=== PATIENT | male | born 1970 | race Caucasian/White ===

== ENCOUNTER → 2019-02-21 | Outpatient (CLI) | payer OTHER ==
[~2019-02-21] MED LIST: ASPI325 PO; ELIQUIS5 MG PO; FIORINAL-COD 31 EACH PO; FLUT1DIS2 INH; FLUTICASONE P15.8 ML NS; IBUP800 PO; NAPR500 PO; Striant30 MG
== END | disposition home or self-care (01) ==
LOC: LAB 07:33 → LAB SHORT 07:33
DX: L82.1 Other seborrheic keratosis (principal); L72.9 Follicular cyst of the skin and subcutaneous tissue, unspecified
CPT/HCPCS: 88305

== ENCOUNTER 2019-10-17 09:47 | Day surgery (SDC) | payer OTHER ==
[~2019-10-17] VITALS: Ht 185.4 cm; Wt 147.4 kg
[2019-10-17] MEDS ORDERED: ELIQUIS5 MG (10:16)
== END 2019-10-17 11:35 | disposition home or self-care (01) ==
LOC: ORSCSDS 09:47
PROVIDERS: Internal Medicine Gastroenterology
PROC: 0DJD8ZZ Inspection of Lower Intestinal Tract, Via Natural or Artificial Opening Endoscopic (ICD-10-PCS; principal; 2019-10-17 11:00)
DX: Z12.11 Encounter for screening for malignant neoplasm of colon (principal); K64.8 Other hemorrhoids; Z86.73 Personal history of transient ischemic attack (TIA), and cerebral infarction without residual deficits; J45.909 Unspecified asthma, uncomplicated; G47.33 Obstructive sleep apnea (adult) (pediatric); Z86.718 Personal history of other venous thrombosis and embolism; E66.01 Morbid (severe) obesity due to excess calories; Z68.42 Body mass index [BMI] 45.0-49.9, adult; Z79.01 Long term (current) use of anticoagulants; Z79.899 Other long term (current) drug therapy
CPT/HCPCS: J2250; J2704; J7120

== ENCOUNTER 2021-08-24 06:33 | Day surgery (SDC) | payer OTHER ==
[~2021-08-24] VITALS: Ht 185.4 cm; Wt 113.0 kg
[~2021-08-24 06:33] MED LIST changes: +ELIQUIS5 MG
[2021-08-24] MEDS ORDERED: ZOLP12.5 PO (07:03)
[2021-08-24] MEDS ORDERED: MODA200 PO (07:04)
[2021-08-24] MEDS ORDERED: NAPR500 PO (07:05)
[2021-08-24] MEDS ORDERED: CENTRUM SILVER1 EAC2 PO (07:06)
[2021-08-24] MEDS ORDERED: Vitamin C100 M1 PO (07:06)
--- NOTE | 2021-08-24 10:10 | NUR ---
AIR REMOVED FROM R WRIST TR BAND. -BLEEDING OR SWELLING. PT AMB TO BATHROOM /S ASSIST. TOLERATED WELL.
--- NOTE | 2021-08-24 10:14 | NUR ---
L HAND IV REMOVED.
--- NOTE | 2021-08-24 10:22 | NUR ---
DISCHARGE GONE OVER WITH PT, VERBALIZES UNDERSTANDING OF INSTRUCTIONS. TR BAND REMOVED, AREA CLEANSED AND CLOTH DOT DRESSING PLACED. PT TO PRIVATE VEHICLE PER W/C.
== END 2021-08-24 10:20 | disposition home or self-care (01) ==
LOC: MHTC 06:33
DX: R07.89 Other chest pain (principal); I10 Essential (primary) hypertension; E66.9 Obesity, unspecified; Z86.73 Personal history of transient ischemic attack (TIA), and cerebral infarction without residual deficits; Z68.34 Body mass index [BMI] 34.0-34.9, adult
CPT/HCPCS: 76937; 93005; 93010; 93454; 99152; 99153; C1769; C1894; J1644; J2250; J3010; J7030; J7050; Q9967

== ENCOUNTER → 2024-09-30 | Outpatient (CLI) | payer OTHER ==
[~2024-09-30] MED LIST changes: +CENTRUM SILVER1 EAC2 PO; +MIRALAX17 GM PO; +MODA200 PO; +Vitamin C100 M1 PO; +ZOLP12.5 PO
[2024-09-30 17:47] LABS: BASOPHILS ABSOLUTE AUTO 0.03 K/mm3 (0.00-0.23); BASOPHILS PERCENT AUTO 0 % (0-2); EOSINOPHILS ABSOLUTE AUTO 0.08 K/mm3 (0.00-0.68); EOSINOPHILS PERCENT AUTO 1 % (0-6); Hematocrit 43.8 % (37.0-53.0); Hemoglobin 14.8 g/dL (13.5-17.5); IMMATURE GRAN ABSOLUTE AUTO 0.01 K/mm3 (0.00-0.10); IMMATURE GRAN PERCENT AUTO 0 % (0-1); LYMPHOCYTES ABSOLUTE AUTO 0.98 K/mm3 (0.84-5.20); LYMPHOCYTES PERCENT AUTO 15 % (21-46); MONOCYTES ABSOLUTE AUTO 0.87 K/mm3 (0.16-1.47); MONOCYTES PERCENT AUTO 13 % (4-13); Mean Corpuscular HGB 30.6 pg (26.0-34.0); Mean Corpuscular HGB Conc 33.8 g/dL (31.5-36.5); Mean Corpuscular Volume 91 fL (80-100); Mean Platelet Volume 10.1 fL (9.1-12.4); NEUTROPHILS ABSOLUTE AUTO 4.72 K/mm3 (1.96-9.15); NEUTROPHILS PERCENT AUTO 71 % (41-73); Platelet Count 209 K/mm3 (150-400); RDW Coefficient Variation 12.3 % (11.7-14.2); RDW Standard Deviation 41.1 fL (35.1-46.3); Red Blood Cell Count 4.84 M/mm3 (4.30-5.90); White Blood Cell Count 6.69 K/mm3 (4.00-11.30)
[2024-09-30 18:00] LABS: Albumin, Blood 3.9 g/dL (3.4-5.0); Bilirubin, Total 0.9 mg/dL (0.1-1.0); Bun/Creatinine Ratio 16.4 (12.0-20.0); Calcium, Blood 9.5 mg/dL (8.5-10.1); Creatinine, Blood 1.1 mg/dL (0.60-1.20); Globulin, Blood 4.1 g/dL (2.2-4.0); Potassium, Blood 4.4 mmol/L (3.5-5.5)
== END ==
LOC: LAB SHORT 17:43 → LAB 17:43
PROVIDERS: Chiropractor
DX: R10.13 Epigastric pain (principal)
CPT/HCPCS: 80053; 83690; 84484; 85025

== ENCOUNTER 2024-10-02 14:52 | Inpatient (IN) | payer OTHER ==
[~2024-10-02] VITALS: Ht 185.4 cm; Wt 148.5 kg
[~2024-10-02 14:52] MED LIST changes: -MIRALAX17 GM PO
[2024-10-02 15:31] LABS: BASOPHILS ABSOLUTE AUTO 0.03 K/mm3 (0.00-0.23); BASOPHILS PERCENT AUTO 0 % (0-2); EOSINOPHILS ABSOLUTE AUTO 0.06 K/mm3 (0.00-0.68); EOSINOPHILS PERCENT AUTO 1 % (0-6); Hematocrit 46.4 % (37.0-53.0); Hemoglobin 16.2 g/dL (13.5-17.5); IMMATURE GRAN ABSOLUTE AUTO 0.03 K/mm3 (0.00-0.10); IMMATURE GRAN PERCENT AUTO 0 % (0-1); LYMPHOCYTES ABSOLUTE AUTO 1.27 K/mm3 (0.84-5.20); LYMPHOCYTES PERCENT AUTO 15 % (21-46); MONOCYTES ABSOLUTE AUTO 0.95 K/mm3 (0.16-1.47); MONOCYTES PERCENT AUTO 11 % (4-13); Mean Corpuscular HGB 30.9 pg (26.0-34.0); Mean Corpuscular HGB Conc 34.9 g/dL (31.5-36.5); Mean Corpuscular Volume 89 fL (80-100); Mean Platelet Volume 10.1 fL (9.1-12.4); NEUTROPHILS ABSOLUTE AUTO 6.25 K/mm3 (1.96-9.15); NEUTROPHILS PERCENT AUTO 73 % (41-73); Platelet Count 240 K/mm3 (150-400); RDW Coefficient Variation 12.1 % (11.7-14.2); RDW Standard Deviation 39.1 fL (35.1-46.3); Red Blood Cell Count 5.24 M/mm3 (4.30-5.90); White Blood Cell Count 8.59 K/mm3 (4.00-11.30)
[2024-10-02 15:59] LABS: Albumin, Blood 4.3 g/dL (3.4-5.0); Albumin/Globulin Ratio 0.9 (0.8-1.8); Bilirubin, Total 0.7 mg/dL (0.1-1.0); Bun/Creatinine Ratio 18.3 (12.0-20.0); Calcium, Blood 9.9 mg/dL (8.5-10.1); Creatinine, Blood 0.99 mg/dL (0.60-1.20); Globulin, Blood 4.6 g/dL (2.2-4.0); Potassium, Blood 3.8 mmol/L (3.5-5.5); Total Protein, Blood 8.9 g/dL (6.4-8.2)
[2024-10-02] MEDS ORDERED: Ondansetron HCl 2 MG / ML 2ML Vial IV ONE (17:20)
[2024-10-02] MEDS ORDERED: Morphine Sulfate 4 MG/1 ML Injection IV ONE (17:20)
[2024-10-02] MEDS ORDERED: FLU VACC TS2024-25(6MOS UP)/PF 45 MCG/0.5 ML SYRINGE IM SCH (18:35)
[2024-10-02] MEDS ORDERED: NS 1,000 ML IV SCH (18:35)
[2024-10-02] MEDS ORDERED: Ondansetron HCl 2 MG / ML 2ML Vial IV PRN (18:35)
[2024-10-02] MEDS ORDERED: Morphine Sulfate 4 MG/1 ML Injection IV PRN (18:40)
[2024-10-02] MEDS ORDERED: Dose Adjust by Pharmacy XX STA (18:58)
[2024-10-02] MEDS ORDERED: NS 1,000 ML IV ONE (19:00)
[2024-10-02] MEDS ORDERED: Heparin Sodium,Porcine/0.5 NS 500 ML IV SCH (19:00)
[2024-10-02 19:38] LABS: Anti-Xa UFH, PHA Monitoring 0.44 IU/mL; International Normalized Ratio 1.08; Prothrombin Time Results 11.5 Sec (9.7-11.5)
[2024-10-02 21:53] VITALS: BP 155/84
[2024-10-03 02:18] LABS: Hematocrit 39.6 % (37.0-53.0); Hemoglobin 13.6 g/dL (13.5-17.5); Mean Corpuscular HGB 31.5 pg (26.0-34.0); Mean Corpuscular HGB Conc 34.3 g/dL (31.5-36.5); Mean Corpuscular Volume 92 fL (80-100); Mean Platelet Volume 10.2 fL (9.1-12.4); Platelet Count 208 K/mm3 (150-400); RDW Standard Deviation 40.6 fL (35.1-46.3); Red Blood Cell Count 4.32 M/mm3 (4.30-5.90)
[2024-10-03] MEDS ORDERED: Dose Adjust by Pharmacy XX STA ×4 (03:08→17:47)
[2024-10-03 03:14] LABS: Albumin, Blood 3.3 g/dL (3.4-5.0); Albumin/Globulin Ratio 0.9 (0.8-1.8); Bilirubin, Total 0.5 mg/dL (0.1-1.0); Bun/Creatinine Ratio 17.9 (12.0-20.0); Calcium, Blood 8.3 mg/dL (8.5-10.1); Creatinine, Blood 0.9 mg/dL (0.60-1.20); Globulin, Blood 3.8 g/dL (2.2-4.0); Magnesium, Blood 2.2 mg/dL (1.6-2.4); Total Protein, Blood 7.1 g/dL (6.4-8.2)
[2024-10-03] MEDS ORDERED: Benzocaine Oral Spray 0.5ML UD MT ONE (03:15)
--- NOTE | 2024-10-03 04:27 | NUR ---
SHIFT SUMMARY ESTER WAS READMITTED FOR PARTIAL SBO. HE WAS ALERT AND FULLY ORIENTED AND ABLE TO SELF TRANSFER TO BED WHEN HE ARRIVED FROM THE ED. PT DENYING NAUSEA AND HAS MINIMAL ABD PAIN, PT BIGGEST COMPLAINT AT THIS TIME IS NG TUBE RELATED DISCOMFORT. HURRICANE SPRAY ADMINISTERED NO ACUTE EVENTS TONIGHT. NO CHANGES TO PT CONDITION.
[2024-10-03 05:26] VITALS: BP 150/84
[2024-10-03 08:45] VITALS: BP 139/82
[2024-10-03 14:42] VITALS: BP 142/86
--- NOTE | 2024-10-03 16:34 | NUR ---
SHIFT SUMMARY S/P SBO. NO ACUTE CHANGES THIS SHIFT. TOLERATING NPO c SIPS N' CHIPS. IV FLUIDS INFUSING PER EMAR. IND IN ROOM. VOIDING. BMs WATERY AND YELLOW, NO FORMED PIECES. PASSING FREQUENT FLATUS. ABD SOFT. PT REPORTS NO PAIN TOLERABLE, NOT MEDICATED TODAY. FAMILY AT BEDSIDE TODAY. CALL LIGHT IN REACH, WILL REPORT TO LAWRENCE RN.
[2024-10-03 19:20] VITALS: BP 142/83
[2024-10-04] MEDS ORDERED: Dose Adjust by Pharmacy XX STA ×3 (01:55→16:45)
[2024-10-04 02:46] VITALS: BP 116/61
--- NOTE | 2024-10-04 04:53 | NUR ---
SHIFT SUMMARY ESTER WAS ALERT AND FULLY ORIENTED ON ASSESMENT. PT CONDITION IS RELATIVELY UNCHANGED FROM PREVIOUS NIGHT. PT STATES SYMPTOMS ARE MILDLY IMPROVED. NO BM TONIGHT. PT IS DENYING NEED FOR PAIN MANAGEMENT AT THIS TIME. NO NAUSEA. PT KEPT NPO EXCEPT FOR ICE CHIPS EARLY IN THE SHIFT. NO ACUTE EVENTS TONIGHT. NO NOTED CHANGES TO PT CONDITION.
[2024-10-04 07:23] VITALS: BP 128/80
[2024-10-04 08:42] LABS: BASOPHILS ABSOLUTE AUTO 0.06 K/mm3 (0.00-0.23); BASOPHILS PERCENT AUTO 1 % (0-2); EOSINOPHILS ABSOLUTE AUTO 0.22 K/mm3 (0.00-0.68); EOSINOPHILS PERCENT AUTO 3 % (0-6); Hematocrit 42.6 % (37.0-53.0); Hemoglobin 14.6 g/dL (13.5-17.5); IMMATURE GRAN ABSOLUTE AUTO 0.03 K/mm3 (0.00-0.10); IMMATURE GRAN PERCENT AUTO 0 % (0-1); LYMPHOCYTES ABSOLUTE AUTO 1.87 K/mm3 (0.84-5.20); LYMPHOCYTES PERCENT AUTO 26 % (21-46); MONOCYTES ABSOLUTE AUTO 0.61 K/mm3 (0.16-1.47); MONOCYTES PERCENT AUTO 8 % (4-13); Mean Corpuscular HGB 31.2 pg (26.0-34.0); Mean Corpuscular HGB Conc 34.3 g/dL (31.5-36.5); Mean Corpuscular Volume 91 fL (80-100); NEUTROPHILS ABSOLUTE AUTO 4.51 K/mm3 (1.96-9.15); NEUTROPHILS PERCENT AUTO 62 % (41-73); Platelet Count 209 K/mm3 (150-400); RDW Standard Deviation 39.8 fL (35.1-46.3); Red Blood Cell Count 4.68 M/mm3 (4.30-5.90)
[2024-10-04 08:57] LABS: Bun/Creatinine Ratio 11.6 (12.0-20.0); Calcium, Blood 8.8 mg/dL (8.5-10.1); Creatinine, Blood 0.77 mg/dL (0.60-1.20); Potassium, Blood 4.4 mmol/L (3.5-5.5)
--- NOTE | 2024-10-04 17:42 | NUR ---
PLT UP AMBULATING ABOUT HALLS. HEPARIN ADJUSTED DOWN TODAY PER PHA. NO BM REPORTED TODAY. DR STATES TO STOP HEPARIN IN AM AT 0400. ORDER PLACED. ALSO NOTED ON WHITEBOARD. PLAN FOR POSS SURGERY TOMORROW. ABD CONTINUES TO BE SOFT, UNCOMFORTABLE, BUT NOT PAINFUL PER PT. BED IN LOW POSITION, CALL LITE IN REACH, CALLS APROP
[2024-10-04 19:13] VITALS: BP 126/73
--- NOTE | 2024-10-05 04:12 | NUR ---
MEDICATION UPDATE HEPARIN STOPPED AT 0410.
[2024-10-05 04:13] VITALS: BP 125/69
[2024-10-05 04:17] LABS: BASOPHILS ABSOLUTE AUTO 0.04 K/mm3 (0.00-0.23); BASOPHILS PERCENT AUTO 1 % (0-2); EOSINOPHILS PERCENT AUTO 3 % (0-6); Hematocrit 38.4 % (37.0-53.0); Hemoglobin 13.4 g/dL (13.5-17.5); IMMATURE GRAN ABSOLUTE AUTO 0.04 K/mm3 (0.00-0.10); IMMATURE GRAN PERCENT AUTO 1 % (0-1); LYMPHOCYTES ABSOLUTE AUTO 1.58 K/mm3 (0.84-5.20); LYMPHOCYTES PERCENT AUTO 24 % (21-46); MONOCYTES ABSOLUTE AUTO 0.69 K/mm3 (0.16-1.47); MONOCYTES PERCENT AUTO 10 % (4-13); Mean Corpuscular HGB 31.2 pg (26.0-34.0); Mean Corpuscular HGB Conc 34.9 g/dL (31.5-36.5); Mean Corpuscular Volume 90 fL (80-100); Mean Platelet Volume 9.8 fL (9.1-12.4); NEUTROPHILS ABSOLUTE AUTO 4.09 K/mm3 (1.96-9.15); NEUTROPHILS PERCENT AUTO 62 % (41-73); Platelet Count 191 K/mm3 (150-400); RDW Coefficient Variation 11.9 % (11.7-14.2); RDW Standard Deviation 38.3 fL (35.1-46.3); Red Blood Cell Count 4.29 M/mm3 (4.30-5.90); White Blood Cell Count 6.64 K/mm3 (4.00-11.30)
--- NOTE | 2024-10-05 04:25 | NUR ---
SHIFT SUMMARY VSS, PT SLEPT WELL T/O THE NIGHT. REMAINS A/OX4 AND INDEPENDENT. VOIDING INTO URINAL, GOOD URINE OUTPUT NOTED. PT HAS BEEN NPO SINCE 0000 IN PREPERATION FOR POSSIBLE SURGERY. PT ENDORSES PASSING FLATTUS TONIGHT, AND HAS ONE VERY SMALL LIQUID BM. PT DENIES ABD PAIN, BUT REPORTS LOWER ABD DISCOMFORT. HAS NOT NEEDED PAIN MEDICATION. PLEASE SEE PREVIOUS RN NOTE FOR HEPARIN STOP TIME. OVERALL, NO ACUTE EVENTS NOTED. PLAN FOR SURGICAL INTERVENTION TODAY.
[2024-10-05 04:34] LABS: Bun/Creatinine Ratio 7.6 (12.0-20.0); Calcium, Blood 8.3 mg/dL (8.5-10.1); Creatinine, Blood 0.79 mg/dL (0.60-1.20); Potassium, Blood 3.8 mmol/L (3.5-5.5)
[2024-10-05 06:59] VITALS: BP 136/90
--- NOTE | 2024-10-05 08:13 | NUR ---
DR ACKERMAN IN TO SEE PT RESTARTED HEPARIN PER DR ACKERMAN'S VERBAL ORDER. NOTIFIED PHARMACY. ORDERED FULL LIQUID BREAKFAST. PT RESTING IN BED, CALL LIGHT IN REACH.
[2024-10-05] MEDS ORDERED: Polyethylene Glycol 3350 17 gm PO SCH (09:00)
[2024-10-05 14:33] VITALS: BP 118/80
[2024-10-05] MEDS ORDERED: Dose Adjust by Pharmacy XX STA (16:17)
--- NOTE | 2024-10-05 18:18 | NUR ---
SUMMARY NO ACUTE CHANGES T/O SHIFT. PT ADVANCED TO FULL LIQUIDS THIS AM AND HAS TOLERATED WELL W/NO REPORTS OF N/V, PAIN, OR BLOATING. HAS HAD TWO FORMED SMALL TO MEDIUM BMS THIS SHIFT. WALKED MULTIPLE TIMES INDEPENDENTLY IN HALLS.
[2024-10-05 19:25] VITALS: BP 145/89
--- NOTE | 2024-10-06 04:43 | NUR ---
NOC SUMMARY- PT HAS RESTED COMFORTABLY. PT PASSING GAS AND VOIDING WELL. PT DENIES ABD PAIN OR N/V. IV HEPARIN CONTINUES ORDERED.
[2024-10-06 04:45] VITALS: BP 121/78
[2024-10-06 05:24] LABS: Hematocrit 38.6 % (37.0-53.0); Hemoglobin 13.5 g/dL (13.5-17.5); Mean Platelet Volume 10.1 fL (9.1-12.4); Platelet Count 206 K/mm3 (150-400)
[2024-10-06] MEDS ORDERED: Dose Adjust by Pharmacy XX STA (06:43)
[2024-10-06 07:03] VITALS: BP 121/83
[2024-10-06] MEDS ORDERED: Apixaban 5 MG Tab PO SCH (09:00)
--- NOTE | 2024-10-06 09:00 | NUR ---
MORNING NOTE THIS RN ASSUMED CARE AT APPROX 191. PATIENT ALERT AND ORIENTED X4. SITTING IN RECLINER CHAIR. VSS. ON ROOM AIR, SATs >90%. RR EVEN, UNLABORED. REPORTS X2 SMALL BMs YESTERDAY. DENIES ABD PAIN. HYPOACTIVE BOWEL TONES. TOLERATING FULL LIQUID DIET W/O NAUSEA/VOMITING. MD ACKERMAN TO BEDSIDE THIS MORNING - IS ABLE TO DC HOME TODAY. MD ESTRADA CONTACTED - NOTIFIED OF DC. RECEIVED ORDER TO DC HEPARIN GTT AND RESTART HOME ELIQUIS 5MG BID. MD ESTRADA PLANS TO ASSESS PATIENT TODAY AND ORDER DC. CALL LIGHT IN REACH. DENIES NEEDS AT THIS TIME.
[2024-10-06] MEDS ORDERED: MIRALAX17 GM PO ×2 (11:36)
--- NOTE | 2024-10-06 11:56 | NUR ---
DISCHARGE NOTE NO ACUTE CHANGES SINCE PREVIOUS DOCUMENTATION. DC HOME ORDERED BY MD ESTRADA. PATIENT TOLERATING FULL LIQUID DIET, REPORTS FLATULENCE, AND X2 SMALL BMs. DENIES ABD PAIN, DISCOMFORT. SWITCHED FROM HEPARIN GTT TO HOME DOSE OF PO ELIQUIS. DC EDUCATION PROVIDED - PATIENT AND HIS STATE UNDERSTANDING. ASKS QUESTIONS PRN TO GAIN FURTHER UNDERSTANDING. IV REMOVED. PATIENT AMBULATED OFF UNIT AT APPROX 1155. PERSONAL BELONGINGS WITH PATIENT AND HIS .
== END 2024-10-06 12:04 | disposition home or self-care (01) | DRG 389 ==
LOC: ER 14:52 → SURS 14:53 → ERHOLD 14:53 → SURS 21:38
PROVIDERS: Emergency Medicine; Internal Medicine; Nurse Practitioner Acute Care; ADMIT Student in an Organized Health Care Education/Training Program
PROC: 5A09357 Assistance with Respiratory Ventilation, Less than 24 Consecutive Hours, Continuous Positive Airway Pressure (ICD-10-PCS; principal; 2024-10-04)
DX: K56.600 Partial intestinal obstruction, unspecified as to cause (principal); Q21.12 Patent foramen ovale; Z68.41 Body mass index [BMI] 40.0-44.9, adult; G43.909 Migraine, unspecified, not intractable, without status migrainosus; E66.01 Morbid (severe) obesity due to excess calories; R73.03 Prediabetes; G47.33 Obstructive sleep apnea (adult) (pediatric); I83.93 Asymptomatic varicose veins of bilateral lower extremities; Z86.73 Personal history of transient ischemic attack (TIA), and cerebral infarction without residual deficits; Z86.718 Personal history of other venous thrombosis and embolism; Z79.01 Long term (current) use of anticoagulants; Z90.49 Acquired absence of other specified parts of digestive tract; Z98.890 Other specified postprocedural states; Z79.899 Other long term (current) drug therapy
CPT/HCPCS: 36415; 74019; 74177; 80048; 80053; 83690; 83735; 85014; 85018; 85025; 85027; 85049; 85520; 85610; 85730; 96365-59; 96366; 96375; 96376; 99285-25; A9270; G0378; J1644; J2270; J2405; J7030; Q9967

== ENCOUNTER 2025-01-26 23:53 | Inpatient (IN) | payer OTHER ==
[~2025-01-26] VITALS: Ht 185.4 cm; Wt 153.5 kg
[~2025-01-26 23:53] MED LIST changes: +MIRALAX17 GM PO
[2025-01-27] MEDS ORDERED: NS 1,000 ML IV SCH ×2 (00:15→03:30)
[2025-01-27] MEDS ORDERED: Ondansetron HCl 2 MG / ML 2ML Vial IV ONE (00:15)
[2025-01-27 00:40] LABS: BASOPHILS ABSOLUTE AUTO 0.05 K/mm3 (0.00-0.23); BASOPHILS PERCENT AUTO 0 % (0-2); EOSINOPHILS PERCENT AUTO 1 % (0-6); Hematocrit 40.8 % (37.0-53.0); Hemoglobin 13.7 g/dL (13.5-17.5); IMMATURE GRAN ABSOLUTE AUTO 0.05 K/mm3 (0.00-0.10); IMMATURE GRAN PERCENT AUTO 0 % (0-1); LYMPHOCYTES ABSOLUTE AUTO 2.07 K/mm3 (0.84-5.20); LYMPHOCYTES PERCENT AUTO 15 % (21-46); MONOCYTES ABSOLUTE AUTO 1.01 K/mm3 (0.16-1.47); MONOCYTES PERCENT AUTO 8 % (4-13); Mean Corpuscular HGB 29.7 pg (26.0-34.0); Mean Corpuscular HGB Conc 33.6 g/dL (31.5-36.5); Mean Corpuscular Volume 89 fL (80-100); Mean Platelet Volume 9.9 fL (9.1-12.4); NEUTROPHILS ABSOLUTE AUTO 10.12 K/mm3 (1.96-9.15); NEUTROPHILS PERCENT AUTO 76 % (41-73); Platelet Count 260 K/mm3 (150-400); RDW Coefficient Variation 12.5 % (11.7-14.2); RDW Standard Deviation 40.6 fL (35.1-46.3); Red Blood Cell Count 4.61 M/mm3 (4.30-5.90)
[2025-01-27 00:59] LABS: Albumin, Blood 4.1 g/dL (3.4-5.0); Bilirubin, Total 0.6 mg/dL (0.1-1.0); Bun/Creatinine Ratio 19.8 (12.0-20.0); Calcium, Blood 9.4 mg/dL (8.5-10.1); Creatinine, Blood 0.86 mg/dL (0.60-1.20); Globulin, Blood 4.3 g/dL (2.2-4.0); Potassium, Blood 4.2 mmol/L (3.5-5.5); Total Protein, Blood 8.4 g/dL (6.4-8.2)
[2025-01-27] MEDS ORDERED: Acetaminophen 500 MG Tab PO ONE (01:15)
[2025-01-27] MEDS ORDERED: FentaNYL Citrate 50 MCG/ML 2 ML Injection IV ONE (03:30)
[2025-01-27] MEDS ORDERED: FentaNYL Citrate 50 MCG/ML 2 ML Injection IV PRN (03:45)
[2025-01-27] MEDS ORDERED: FLU VACC TS2024-25(6MOS UP)/PF 45 MCG/0.5 ML SYRINGE IM ONE (03:45)
[2025-01-27] MEDS ORDERED: Acetaminophen 325 MG TABLET PO PRN (03:45)
[2025-01-27] MEDS ORDERED: Ondansetron HCl 2 MG / ML 2ML Vial IV PRN (03:45)
[2025-01-27] MEDS ORDERED: Lactated Ringer's 1,000 ML IV SCH (04:00)
--- NOTE | 2025-01-27 05:50 | NUR ---
ADMIT NOTE 54 YR OLD MALE ADMITTED TO FLOOR FROM THE ED WITH DX OF SMALL BOWEL OBSTRUCTION. ALERT AND ORIENTED. COOPERATIVE. ACCOMPANIED BY . IVF OF NS INFUSING AT 75 ML/HR. ORIENTED TO USE OF CALL LIGHT. RAILS UP X 2 AND BED IN LOW POSITION FOR SAFETY. CALL LIGHT IN REACH.
[2025-01-27 06:16] LABS: BASOPHILS ABSOLUTE AUTO 0.03 K/mm3 (0.00-0.23); BASOPHILS PERCENT AUTO 0 % (0-2); EOSINOPHILS ABSOLUTE AUTO 0.02 K/mm3 (0.00-0.68); EOSINOPHILS PERCENT AUTO 0 % (0-6); Hematocrit 40.3 % (37.0-53.0); Hemoglobin 13.6 g/dL (13.5-17.5); IMMATURE GRAN ABSOLUTE AUTO 0.03 K/mm3 (0.00-0.10); IMMATURE GRAN PERCENT AUTO 0 % (0-1); LYMPHOCYTES ABSOLUTE AUTO 0.85 K/mm3 (0.84-5.20); LYMPHOCYTES PERCENT AUTO 9 % (21-46); MONOCYTES ABSOLUTE AUTO 0.68 K/mm3 (0.16-1.47); MONOCYTES PERCENT AUTO 7 % (4-13); Mean Corpuscular HGB 30.3 pg (26.0-34.0); Mean Corpuscular HGB Conc 33.7 g/dL (31.5-36.5); Mean Corpuscular Volume 90 fL (80-100); Mean Platelet Volume 9.8 fL (9.1-12.4); NEUTROPHILS ABSOLUTE AUTO 7.61 K/mm3 (1.96-9.15); NEUTROPHILS PERCENT AUTO 83 % (41-73); Platelet Count 234 K/mm3 (150-400); RDW Coefficient Variation 12.6 % (11.7-14.2); RDW Standard Deviation 41.2 fL (35.1-46.3); Red Blood Cell Count 4.49 M/mm3 (4.30-5.90); White Blood Cell Count 9.22 K/mm3 (4.00-11.30)
[2025-01-27 06:34] LABS: Albumin, Blood 3.7 g/dL (3.4-5.0); Albumin/Globulin Ratio 0.9 (0.8-1.8); Bilirubin, Total 0.5 mg/dL (0.1-1.0); Bun/Creatinine Ratio 19.1 (12.0-20.0); Calcium, Blood 8.7 mg/dL (8.5-10.1); Creatinine, Blood 0.84 mg/dL (0.60-1.20); Potassium, Blood 4.4 mmol/L (3.5-5.5); Total Protein, Blood 7.7 g/dL (6.4-8.2)
--- NOTE | 2025-01-27 06:45 | NUR ---
CALL PLACED TO FOREMAN OR SUPERVISOR AND OPERATOR ANSWERING SERVICE. DR FARNSWORTH FOREMAN OR SUPERVISOR AND OPERATOR - ANS SERVICE TO NOTIFY
[2025-01-27 07:24] VITALS: BP 123/71
[2025-01-27] MEDS ORDERED: Lactobacil 2-S.Thermo-Bifido 1 1 Cap PO SCH (09:00)
[2025-01-27] MEDS ORDERED: Docusate Sodium 100 MG Cap PO SCH (09:00)
--- NOTE | 2025-01-27 11:24 | NUR ---
PATIENT AND WORKING WITH PT, DR RAMIREZ AND DR MARCUS ROUNDED, NG TUBE TO BE HELD AND PLACED IF PATIENT BECOMES NAUSEA, MEDICATED FOR PAIN
--- NOTE | 2025-01-27 14:14 | NUR ---
Pt. is awake and sitting on the side of his bed. Pt. is pleasant. When facilitating a life review it revealed that the Pt. and this hand sign writer have many common people connections in the community. Rapport is established. Considered matters of personal carolyn and belief. Pt. displayed evidence of being aware, engaged, and trusting for a positive outcome of his hospital visit. Prayed with Pt. Pt. verbalized gratitude for the spiritual care visit and welcomed this hand sign writer to return.
[2025-01-27 15:51] VITALS: BP 120/75
--- NOTE | 2025-01-27 17:52 | NUR ---
ALERT AND ORIENTED X4, INDEPEDANT ON UNIT TO WALK, PATIENT IS PASSING FLATUS AND HAS HAD A FORMED STOOL, MEDICATED FOR PAIN, WORKED WITH PT, HELPFUL AT BEDSIDE, PLEASANT TO CARE CALL LIGHT WITH IN REACH WILL RELAY TO PM RN
--- NOTE | 2025-01-27 20:23 | NUR ---
ASSUMPTION OF CARE; REPORT RECEIVED FROM DAY RN. PATIENT ALERT AND ORIENTATED. APPEARS COMFORTABLE. CONTINUE CARE
[2025-01-27 20:34] VITALS: BP 124/59
[2025-01-28] MEDS ORDERED: Heparin Sodium 5000 Units/ML 1ML MDV SC SCH
--- NOTE | 2025-01-28 05:14 | NUR ---
PATIENT SLEPT ON AND OFF LAST NIGHT. UP WALKING THE HALLS DURING THE NIGHT. C-PAP ON WHEN ASLEEP. FENTANYL FOR PAIN. TOLERATING CLEAR LIQUID DIET. IS HOPING TO INCREASE THE CONSISTENCY OF HIS DIET TODAY. NO NAUSEA OR VOMITING. VOIDING WELL. TELE NSR. CONTINUE CARE
[2025-01-28 05:39] LABS: BASOPHILS ABSOLUTE AUTO 0.02 K/mm3 (0.00-0.23); BASOPHILS PERCENT AUTO 0 % (0-2); EOSINOPHILS ABSOLUTE AUTO 0.21 K/mm3 (0.00-0.68); EOSINOPHILS PERCENT AUTO 4 % (0-6); Hematocrit 35.1 % (37.0-53.0); Hemoglobin 11.8 g/dL (13.5-17.5); IMMATURE GRAN ABSOLUTE AUTO 0.01 K/mm3 (0.00-0.10); IMMATURE GRAN PERCENT AUTO 0 % (0-1); LYMPHOCYTES ABSOLUTE AUTO 1.52 K/mm3 (0.84-5.20); LYMPHOCYTES PERCENT AUTO 30 % (21-46); MONOCYTES ABSOLUTE AUTO 0.73 K/mm3 (0.16-1.47); MONOCYTES PERCENT AUTO 14 % (4-13); Mean Corpuscular HGB Conc 33.6 g/dL (31.5-36.5); Mean Corpuscular Volume 89 fL (80-100); Mean Platelet Volume 9.7 fL (9.1-12.4); NEUTROPHILS ABSOLUTE AUTO 2.57 K/mm3 (1.96-9.15); NEUTROPHILS PERCENT AUTO 51 % (41-73); Platelet Count 201 K/mm3 (150-400); RDW Coefficient Variation 12.5 % (11.7-14.2); RDW Standard Deviation 41.2 fL (35.1-46.3); Red Blood Cell Count 3.93 M/mm3 (4.30-5.90); White Blood Cell Count 5.06 K/mm3 (4.00-11.30)
[2025-01-28 06:08] LABS: Bun/Creatinine Ratio 14.7 (12.0-20.0); Calcium, Blood 8.3 mg/dL (8.5-10.1); Creatinine, Blood 0.88 mg/dL (0.60-1.20)
[2025-01-28 07:40] VITALS: BP 120/81
[2025-01-28] MEDS ORDERED: Vitamin D1000 UNI1 PO (09:03)
[2025-01-28] MEDS ORDERED: CENTRUM SILVER1 EAC2 PO (09:03)
[2025-01-28] MEDS ORDERED: ACET500 PO (09:03)
[2025-01-28 16:15] VITALS: BP 132/86
--- NOTE | 2025-01-28 19:15 | NUR ---
DISCHARGE NOTE- PT AND SPOUSE WERE GIVEN VERBAL AND WRITTEN DISCHARGE INSTRUCTIONS AND ACKNOWLEDGED UNDERSTANDING OF THEM. IV DC'D PRIOR TO DISCHARGE. PT DECLINED ESCCORT ANND ASSISTANCE AND WALKED OUT WITH HIS SPOUSE. NO S&S OF DISTRESS NOTED AT THE TIME OF DDISCHARGE.
== END 2025-01-28 19:15 | disposition home or self-care (01) | DRG 389 ==
LOC: ER 23:53 → MEDS 23:54
PROVIDERS: Emergency Medicine; Internal Medicine; ADMIT Student in an Organized Health Care Education/Training Program
DX: K56.600 Partial intestinal obstruction, unspecified as to cause (principal); Z68.42 Body mass index [BMI] 45.0-49.9, adult; E66.813 Obesity, class 3; E78.5 Hyperlipidemia, unspecified; I10 Essential (primary) hypertension; G43.909 Migraine, unspecified, not intractable, without status migrainosus; G47.33 Obstructive sleep apnea (adult) (pediatric); R73.03 Prediabetes; Z79.01 Long term (current) use of anticoagulants; Z79.899 Other long term (current) drug therapy; Z90.49 Acquired absence of other specified parts of digestive tract; Z86.73 Personal history of transient ischemic attack (TIA), and cerebral infarction without residual deficits; Z86.718 Personal history of other venous thrombosis and embolism
CPT/HCPCS: 36415; 74177; 80048; 80053; 82947; 83690; 83735; 85025; 94762; 96361; 96374-59; 96375; 96376; 97110; 97116; 97140; 97161; 99285-25; A9270; G0378; J1644; J2405; J3010; J7030; J7120; Q9967